=== PATIENT | male | born 1995 | race Two or more races ===

== ENCOUNTER 2020-01-09 15:22 | Outpatient (CLI) | payer OTHER | END 2020-01-09 16:00 | disposition home or self-care (01) | LOC: OFIC 805 15:22 | PROVIDERS: ATTEND Otolaryngology Otology & Neurotology | DX: J30.89 Other allergic rhinitis (principal); H92.01 Otalgia, right ear; R09.81 Nasal congestion ==

== ENCOUNTER → 2021-05-22 | Emergency (ER) | payer OTHER ==
[~2021-05-22] VITALS: Ht 193 cm; Wt 111.1 kg
== END | disposition home or self-care (01) ==
LOC: ER 12:27
DX: R10.9 Unspecified abdominal pain (principal)

== ENCOUNTER 2022-07-10 14:51 | Emergency (ER) | payer OTHER ==
[~2022-07-10] VITALS: Ht 193 cm; Wt 111.1 kg
[2022-07-10] MEDS ORDERED: QUETIAPINE FUM400 M1 (16:04)
[2022-07-10] MEDS ORDERED: BUSPIRONE HCL7.5 MG PO (16:04)
[2022-07-10] MEDS ORDERED: LAMICTAL (BLUE)25 MG PO (16:04)
[2022-07-10] MEDS ORDERED: WELLBUTRIN XL300 MG PO (16:04)
== END 2022-07-10 19:07 | disposition home or self-care (01) ==
LOC: ER 14:51
DX: T78.40XA Allergy, unspecified, initial encounter (principal); T42.6X5A Adverse effect of other antiepileptic and sedative-hypnotic drugs, initial encounter; Y92.89 Other specified places as the place of occurrence of the external cause; Z88.0 Allergy status to penicillin